=== PATIENT | female | born 1990 | race Caucasian/White ===

== ENCOUNTER 2018-01-20 14:41 | Emergency (ER) | payer OTHER ==
[2018-01-20 14:50] VITALS: BP 120/81; PULSE 85; TEMP 98; BMI 25.9
--- NOTE | 2018-01-20 14:52 | PDOC ---
Rapid Medical Evaluation Chief Complaint: Pain, Acute Medical Evaluation: Allergies Allergy/AdvReac Type Severity Reaction Status Date / Time No Known Allergies Allergy Verified 11/21/15 13:28 01/20/18 14:50 C/O LEFT SHOULDER PAIN TWISTED shoulder while carrying a heavy laundry bag 1 week ago PE: pateint alert ox3. able to extent arm. limited rom due to pain A: shoulder injury P: xray urine Discharge Disposition - Diagnosis Shoulder injury Qualifiers: Encounter type: initial encounter Laterality: left Qualified Code(s): S49.92XA - Unspecified injury of left shoulder and upper arm, initial encounter - Referrals - Patient Instructions - Post Discharge Activity
--- NOTE | 2018-01-20 15:04 | PDOC ---
History of Present Illness - General Chief Complaint: Pain, Acute Stated Complaint: RIGHT Shoulder PAIN Time Seen by Provider: 01/20/18 14:59 - History of Present Illness Initial Comments: 01/20/18 15:02 27-year-old female presents for evaluation of atraumatic left shoulder pain. She states she was lifting a suitcase last week and over the last week or shoulder increasingly he came or more painful. She points to the anterior aspect of the left shoulder as the area of her discomfort. She has no systemic symptoms Past History - Past Medical History Allergies/Adverse Reactions: Allergies Allergy/AdvReac Type Severity Reaction Status Date / Time No Known Allergies Allergy Verified 01/20/18 14:50 Home Medications: Ambulatory Orders NK [No Known Home Medication] 01/20/18 COPD: No Psychiatric Problems: Yes (depression/anxiety) - Suicide/Smoking/Psychosocial Hx Smoking History: Current every day smoker Have you smoked in the past 12 months: Yes Number of Cigarettes Smoked Daily: 4 Information on smoking cessation initiated: No Hx Alcohol Use: No Drug/Substance Use Hx: No Substance Use Type: None Review of Systems - Review of Systems Constitutional: No: Chills, Fever, Night Sweats Musculoskeletal: Yes: Joint Pain *Physical Exam - Vital Signs Last Vital Signs Temp Pulse Resp BP Pulse Ox 98 F 85 18 120/81 99 01/20/18 14:47 01/20/18 14:47 01/20/18 14:47 01/20/18 14:47 01/20/18 14:47 - Physical Exam Comments: Left shoulder range of motion is full and nonpainful. She has 5 out of 5 strength in supraspinous isolation internal and external rotation, negative impingement maneuvers. Positive speeds positive Benedict's test. No evidence of instability negative Spurling maneuver 5 out of 5 strength in bilateral upper extremities she's neurovascularly intact 01/20/18 15:03 *DC/Admit/Observation/Transfer Diagnosis at time of Disposition: Left shoulder strain Diagnosis at time of Disposition: (Ruled Out): Shoulder injury - Discharge Dispostion Disposition: HOME Condition at time of disposition: Stable Decision to Admit order: No - Referrals Referrals: Michael Bruno MD [Staff Physician] - - Patient Instructions Additional Instructions: Return to the emergency room should symptoms worsen or go unresolved. Please take Tylenol and Motrin as directed for pain. Follow-up with orthopedic surgery in 2-3 days for further evaluation and treatment options of your shoulder pain - Post Discharge Activity
== END 2018-01-20 15:29 | disposition home or self-care (01) ==
LOC: JERFT 14:41
DX: S46.812A Strain of other muscles, fascia and tendons at shoulder and upper arm level, left arm, initial encounter (principal); X50.0XXA Overexertion from strenuous movement or load, initial encounter; Y93.89 Activity, other specified; Y92.89 Other specified places as the place of occurrence of the external cause; Y99.8 Other external cause status
CPT/HCPCS: 99281-25

== ENCOUNTER 2018-03-11 16:13 | Emergency (ER) | payer OTHER ==
--- NOTE | 2018-03-11 16:27 | PDOC ---
Rapid Medical Evaluation Chief Complaint: Pain, Acute Time Seen by Provider: 03/11/18 16:25 Medical Evaluation: Allergies Allergy/AdvReac Type Severity Reaction Status Date / Time No Known Allergies Allergy Verified 01/20/18 14:50 03/11/18 16:25 I performed a brief in person evaluation. CC: Rash HPI: Pt is a 27 YO female with a hx left shoulder pain x 1 day. Denies injury or trauma. PE: Skin: Clear Lungs: Clear Heart: RRR MS: Moves all extremities without difficulty Neuro: Alert Psych: Appropriate affect Pt will go to [facility] for further evaluation. Discharge Disposition - Diagnosis Musculoskeletal pain - Referrals - Patient Instructions - Post Discharge Activity
[2018-03-11 16:30] VITALS: BP 137/84; PULSE 82; TEMP 98; BMI 26.4
--- NOTE | 2018-03-11 16:59 | PDOC ---
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 of L shoulder pain x 1 week no trauma Past History - Past Medical History Allergies/Adverse Reactions: Allergies Allergy/AdvReac Type Severity Reaction Status Date / Time No Known Allergies Allergy Verified 03/11/18 16:30 Home Medications: Ambulatory Orders NK [No Known Home Medication] 01/20/18 COPD: No Psychiatric Problems: Yes (depression/anxiety) - Suicide/Smoking/Psychosocial Hx Smoking History: Current every day smoker Have you smoked in the past 12 months: Yes Number of Cigarettes Smoked Daily: 6 Information on smoking cessation initiated: No Hx Alcohol Use: Yes (social) Drug/Substance Use Hx: No Substance Use Type: None Review of Systems - Review of Systems Musculoskeletal: Yes: Joint Pain *Physical Exam - Vital Signs Last Vital Signs Temp Pulse Resp BP Pulse Ox 98.0 F 82 18 137/84 100 03/11/18 16:28 03/11/18 16:28 03/11/18 16:28 03/11/18 16:28 03/11/18 16:28 - Physical Exam Comments: 03/11/18 16:55 Left shoulder skin color and temperature are normal range of motion is full and nonpainful. 5 out of 5 strength with supraspinatus isolation internal and external rotation. Mildly positive impingement maneuvers negative Spurling maneuver no gross sensorimotor deficits is neurovascularly intact. Moderate Sedation - Procedure Monitoring Vital Signs: Procedure Monitoring Vital Signs Temperature 98.0 F 03/11/18 16:28 Pulse Rate 82 03/11/18 16:28 Respiratory Rate 18 03/11/18 16:28 Blood Pressure 137/84 03/11/18 16:28 O2 Sat by Pulse Oximetry (%) 100 03/11/18 16:28 *DC/Admit/Observation/Transfer Diagnosis at time of Disposition: Musculoskeletal pain, Shoulder impingement - Discharge Dispostion Disposition: HOME Condition at time of disposition: Stable Decision to Admit order: No - Referrals Referrals: Janna Gomez MD [Primary Care Provider] - Michael Bruno MD [Staff Physician] - - Patient Instructions Printed Discharge Instructions: Shoulder Tendinopathy Additional Instructions: Return to the emergency room should symptoms worsen or go unresolved. Please follow-up with orthopedic surgery in 1-2 days for further evaluation and treatment options. He may take Tylenol and Motrin as directed for pain. - Post Discharge Activity
== END 2018-03-11 17:04 | disposition home or self-care (01) ==
LOC: JERFT 16:13
DX: M75.42 Impingement syndrome of left shoulder (principal); F41.8 Other specified anxiety disorders; F32.9 Major depressive disorder, single episode, unspecified; F17.210 Nicotine dependence, cigarettes, uncomplicated
CPT/HCPCS: 99281-25

== ENCOUNTER 2019-01-14 16:42 | Emergency (ER) | payer OTHER ==
--- NOTE | 2019-01-14 16:58 | PDOC ---
Rapid Medical Evaluation Time Seen by Provider: 01/14/19 16:56 Medical Evaluation: Allergies Allergy/AdvReac Type Severity Reaction Status Date / Time No Known Allergies Allergy Verified 03/11/18 16:30 01/14/19 16:56 I have performed a brief in-person evaluation of this patient. The patient presents with a chief complaint of: rt ear since saturday, no meds taken, no decreased hearing Pertinent physical exam findings: appears dry, no mastoid tenderness, vss I have ordered the following: none The patient will proceed to the ED for further evaluation. Discharge Disposition - Diagnosis Right ear pain - Referrals - Patient Instructions - Post Discharge Activity
[2019-01-14 16:59] VITALS: BP 109/77; PULSE 89; TEMP 97.7; BMI 25.4
[2019-01-14] MEDS ORDERED: PSEUDOEPHEDRINE HCL 30 MG TABLET PO ONE (17:36)
--- NOTE | 2019-01-14 17:37 | PDOC ---
History of Present Illness - General Chief Complaint: Ear Problem Stated Complaint: EAR/PAIN/HEAD/PAIN Time Seen by Provider: 01/14/19 16:56 - History of Present Illness Initial Comments: 01/14/19 17:36 29-year-old female without comorbidities presents for right ear pain x3 days no systemic symptoms Past History - Past Medical History Allergies/Adverse Reactions: Allergies Allergy/AdvReac Type Severity Reaction Status Date / Time No Known Allergies Allergy Verified 01/14/19 16:59 Home Medications: Ambulatory Orders NK [No Known Home Medication] 01/20/18 COPD: No Psychiatric Problems: Yes (depression/anxiety) - Psycho Social/Smoking Cessation Hx Smoking History: Never smoked Have you smoked in the past 12 months: Yes Number of Cigarettes Smoked Daily: 6 Information on smoking cessation initiated: No Hx Alcohol Use: No Drug/Substance Use Hx: No Substance Use Type: None Review of Systems - Review of Systems HEENTM: Yes: Ear Pain. No: Tinnitus *Physical Exam - Vital Signs Last Vital Signs Temp Pulse Resp BP Pulse Ox 97.7 F 89 18 109/77 98 01/14/19 16:57 01/14/19 16:57 01/14/19 16:57 01/14/19 16:57 01/14/19 16:57 - Physical Exam Comments: 01/14/19 17:36 GENERAL: The patient is awake, alert, and fully oriented, in no acute distress. HEAD: Normal with no signs of trauma. EYES: sclera anicteric, conjunctiva clear. ENT: Ears normal tympanic membranes are normal NECK: Normal range of motion LUNGS: Breath sounds equal, clear to auscultation bilaterally. No wheezes, and no crackles. HEART: S1 and S2 without murmur, rub or gallop. ABDOMEN: Soft, nontender, normoactive bowel sounds. No guarding, no rebound. No masses. EXTREMITIES: Normal range of motion, no edema. No clubbing or cyanosis. No cords, erythema, or tenderness. NEUROLOGICAL: Cranial nerves II through XII grossly intact. Normal speech, normal gait. PSYCH: Normal mood, normal affect. SKIN: Warm, Dry, normal turgor, no rashes or lesions noted. Medical Decision Making - Medical Decision Making 01/14/19 17:37 Patient states she feels congestion I will treat her with a Sudafed she has a an appointment with her primary care physician tomorrow Discharge - Discharge Information Problems reviewed: Yes Clinical Impression/Diagnosis: Right ear pain Condition: Stable Disposition: HOME - Admission No - Follow up/Referral Referrals: Keagan Dave MD [Primary Care Provider] - - Patient Discharge Instructions Additional Instructions: Return to the emergency room for worsening issues. Continue to follow-up with your primary care physician in the morning as directed. He was given a dose of Sudafed which should help with your congestion in your ear pain - Post Discharge Activity
[2019-01-14] MEDS ORDERED: PSEUDOEPHEDRINE HCL 60 MG TABLET ONE (17:41)
== END 2019-01-14 17:51 | disposition home or self-care (01) ==
LOC: JERFT 16:42
DX: H92.01 Otalgia, right ear (principal); F41.8 Other specified anxiety disorders; Z87.891 Personal history of nicotine dependence
CPT/HCPCS: 99281-25

== ENCOUNTER 2019-02-04 15:28 | Emergency (ER) | payer OTHER ==
[2019-02-04 15:38] VITALS: BP 109/78; PULSE 92; TEMP 98; BMI 26.4
--- NOTE | 2019-02-04 15:38 | PDOC ---
Rapid Medical Evaluation Time Seen by Provider: 02/04/19 15:36 Medical Evaluation: Allergies Allergy/AdvReac Type Severity Reaction Status Date / Time No Known Allergies Allergy Verified 01/14/19 16:59 02/04/19 15:37 Patient c/o: slipped on ice now with rt ankle swelling and pain Patient on brief exam: noted edema and tenderness to lat aspect malleolus Patient ordered for: ankle xray Patient to proceed to the ED Discharge Disposition - Diagnosis Right ankle injury, Right ankle sprain - Discharge Dispostion Disposition: HOME Condition at time of disposition: Stable - Referrals Referrals: Keagan Dave MD [Primary Care Provider] - Misha Lowery DO [Staff Physician] - - Patient Instructions Additional Instructions: You may weight-bear as tolerated with use of crutches in the Aircast Tylenol as directed for pain. Return to the emergency room for worsening symptoms. And without fail please follow-up with orthopedic surgery in 1 to 2 days for further evaluation and treatment options. - Post Discharge Activity
--- NOTE | 2019-02-04 16:05 | PDOC ---
History of Present Illness - General Chief Complaint: Injury Stated Complaint: FALL Time Seen by Provider: 02/04/19 15:36 - History of Present Illness Initial Comments: 02/04/19 16:03 28-year-old female presents for right ankle pain after describing an inversion injury which occurred today Past History - Past Medical History Allergies/Adverse Reactions: Allergies Allergy/AdvReac Type Severity Reaction Status Date / Time No Known Allergies Allergy Verified 02/04/19 15:39 Home Medications: Ambulatory Orders NK [No Known Home Medication] 01/20/18 COPD: No Psychiatric Problems: Yes (depression/anxiety) - Psycho Social/Smoking Cessation Hx Smoking History: Never smoked Have you smoked in the past 12 months: Yes Number of Cigarettes Smoked Daily: 6 Hx Alcohol Use: No Drug/Substance Use Hx: No Substance Use Type: None Review of Systems - Review of Systems Musculoskeletal: Yes: Joint Pain *Physical Exam - Vital Signs Last Vital Signs Temp Pulse Resp BP Pulse Ox 98 F 92 H 18 109/78 98 02/04/19 15:36 02/04/19 15:36 02/04/19 15:36 02/04/19 15:36 02/04/19 15:36 - Physical Exam 02/04/19 16:03 Ankle skin color and temperature normal range of motion is slightly limited. There is no tenderness about the proximal fibula or along its distal course. No tenderness about the medial lateral malleolus base of the fifth metatarsal or navicular. Mild tenderness over the ATFL without instability no gross sensorimotor deficits neurovascular intact. Medical Decision Making - Medical Decision Making 02/04/19 16:03 X-rays of the right ankle show no evidence of fracture trauma or destructive process. Ankle sprain weight-bear as tolerated with Aircast and crutches Tylenol and Motrin for pain Discharge - Discharge Information Problems reviewed: Yes Clinical Impression/Diagnosis: Right ankle injury, Right ankle sprain Condition: Stable Disposition: HOME - Admission No - Follow up/Referral Referrals: Keagan Dave MD [Primary Care Provider] - Misha Lowery DO [Staff Physician] - - Patient Discharge Instructions Additional Instructions: You may weight-bear as tolerated with use of crutches in the Aircast Tylenol as directed for pain. Return to the emergency room for worsening symptoms. And without fail please follow-up with orthopedic surgery in 1 to 2 days for further evaluation and treatment options. - Post Discharge Activity
== END 2019-02-04 16:10 | disposition home or self-care (01) ==
LOC: JERFT 15:28
PROC: 2W3QX1Z Immobilization of Right Lower Leg using Splint (ICD-10-PCS; principal; 2019-02-04)
DX: S93.401A Sprain of unspecified ligament of right ankle, initial encounter (principal); X58.XXXA Exposure to other specified factors, initial encounter; Y93.89 Activity, other specified; Y92.89 Other specified places as the place of occurrence of the external cause; F41.8 Other specified anxiety disorders
CPT/HCPCS: 73610-TC-RT-FY; 99281-25

== ENCOUNTER 2019-09-13 13:40 | Emergency (ER) | payer OTHER ==
[2019-09-13 13:44] VITALS: BP 125/78; PULSE 78; TEMP 98.3; BMI 24.5
--- NOTE | 2019-09-13 13:44 | PDOC ---
Rapid Medical Evaluation Chief Complaint: Ear Problem Time Seen by Provider: 09/13/19 13:41 Medical Evaluation: Allergies Allergy/AdvReac Type Severity Reaction Status Date / Time No Known Allergies Allergy Verified 02/04/19 15:39 09/13/19 13:41 I performed a brief in-person evaluation of this patient. Pt is a 29 y/o female with L earache for the last 4 days. She also is requesting a beta HCG but has not missed a period. She states her LMP was 08/20/19 and took a urine test which was negative. Pt admits to trying to get . Pertinent physical exam findings: no drainage noted from the L ear. I have ordered the following: none, beta HCG order left to the discretion of the treating provider. Patient to proceed to ED for further evaluation. Discharge Disposition - Diagnosis Left ear pain - Referrals - Patient Instructions - Post Discharge Activity
--- NOTE | 2019-09-13 14:07 | PDOC ---
History of Present Illness - General Chief Complaint: Ear Problem Stated Complaint: EAR PROBLEM Time Seen by Provider: 09/13/19 13:41 History Source: Patient - History of Present Illness Timing/Duration: reports: other Associated Symptoms: reports: earache. denies: cough, fever/chills, sore throat Past History - Medical History Allergies/Adverse Reactions: Allergies Allergy/AdvReac Type Severity Reaction Status Date / Time No Known Allergies Allergy Verified 09/13/19 13:44 Home Medications: Ambulatory Orders NK [No Known Home Medication] 01/20/18 COPD: No Psychiatric Problems: Yes (depression/anxiety) - Psycho-Social/Smoking History Smoking History: Current every day smoker Have you smoked in the past 12 months: Yes Number of Cigarettes Smoked Daily: 6 Information on smoking cessation initiated: No - Substance Abuse Hx (Audit-C & DAST Scrn) How often the patient has a drink containing alcohol: Never Score: In Men: 4 or > Positive; In Women: 3 or > Positive: 0 Screen Result (Pos requires Nsg. Audit-10AR): Negative Review of Systems - Review of Systems Constitutional: Yes: Fever HEENTM: Yes: Ear Pain. No: Ear Discharge Respiratory: No: Cough *Physical Exam - Vital Signs Last Vital Signs Temp Pulse Resp BP Pulse Ox 98.3 F 78 18 125/78 99 09/13/19 13:41 09/13/19 13:41 09/13/19 13:41 09/13/19 13:41 09/13/19 13:41 - Physical Exam General Appearance: Yes: Appropriately Dressed. No: Apparent Distress HEENT: positive: Normal ENT Inspection, Normal Voice, TMs Normal, Pharynx Normal. negative: Scleral Icterus (R), Scleral Icterus (L) Neck: positive: Supple Respiratory/Chest: negative: Respiratory Distress Integumentary: positive: Dry, Warm Neurologic: positive: Fully Oriented, Alert, Normal Mood/Affect Medical Decision Making - Medical Decision Making 09/13/19 14:04 29 yo F, no sig hx, here w/ L ear pain w/ "clogging" sensation x 2 days. No otorrhea. sore throat, f/c. See exam Ear pain of unclear etiology No findings on exam to explain sxs Dc w/ ENT f/u and OTC meds prn pain Discharge - Discharge Information Problems reviewed: Yes Clinical Impression/Diagnosis: Left ear pain Condition: Good Disposition: HOME - Follow up/Referral Referrals: Keagan Dave MD [Primary Care Provider] - Mohinder Garcia MD [Staff Physician] - - Patient Discharge Instructions Patient Printed Discharge Instructions: DI for Ear Pain-Adult Additional Instructions: The cause of your pain is unclear. Please follow up with DR Dias of ENT next week take motrin for pain as needed - Post Discharge Activity
== END 2019-09-13 14:12 | disposition home or self-care (01) ==
LOC: JERFT 13:40
DX: H92.02 Otalgia, left ear (principal)
CPT/HCPCS: 99283-25

== ENCOUNTER 2019-10-04 16:21 | Emergency (ER) | payer OTHER ==
[2019-10-04 16:31] VITALS: BP 124/88; PULSE 96; TEMP 98; BMI 24.9
--- NOTE | 2019-10-04 16:37 | PDOC ---
History of Present Illness - General Chief Complaint: Sore Throat Stated Complaint: SORE THROAT Time Seen by Provider: 10/04/19 16:24 History Source: Patient Exam Limitations: No Limitations - History of Present Illness Initial Comments: 10/04/19 16:46 HISTORY OF PRESENT ILLNESS: 29yo F with sore throat since awaking today. Denies fevers, chills, voice changes, difficulty swallowing. Patient reports performing oral sex on new male partner. Patient is concerned for oral GC. No recent travel or sick contacts. PAST MEDICAL HISTORY: Denies past medical history SURGICAL HISTORY: Denies ALLERGIES: No known drug allergies REVIEW OF SYSTEMS General/Constitutional: Denies fever or chills. Denies weakness, weight change. HEENT:see HPI Cardiovascular: Denies chest pain or shortness of breath. Respiratory: Denies cough, wheezing, or hemoptysis. Gastrointestinal: Denies nausea, vomiting, diarrhea or constipation. Denies rectal bleeding. Genitourinary: Denies dysuria, frequency, or change in urination. Musculoskeletal: Denies joint or muscle swelling or pain. Denies neck or back pain. Skin and breasts: Denies rash or easy bruising. Neurologic: Denies headache, vertigo, loss of consciousness, or loss of sensation. Psychiatric: Denies depression or anxiety. Endocrine: Denies increased thirst. Denies abnormal weight change. Hematologic/Lymphatic: Denies anemia, easy bleeding, or history of blood clots. Allergic/Immunologic: Denies hives or skin allergy. Denies latex allergy. PHYSICAL EXAM General Appearance: Well-appearing, appropriately dressed. No apparent distr ess, no intoxication. HEENT: EOMI, PERRLA, normal ENT inspection, normal voice. No conjunctival pallor. No photophobia, scleral icterus. 3+ tonsillar swelling present. B/L exudate present. Neck: Supple. Trachea midline. No tenderness, rigidity, carotid bruit, stridor, lymphadenopathy, or thyromegaly. Past History - Medical History Allergies/Adverse Reactions: Allergies Allergy/AdvReac Type Severity Reaction Status Date / Time No Known Allergies Allergy Verified 10/04/19 16:30 Home Medications: Ambulatory Orders Amoxicillin - [Amoxicillin 500mg Capsule -] 500 mg PO BID #20 capsule 10/04/19 COPD: No Psychiatric Problems: Yes (depression/anxiety) - Psycho-Social/Smoking History Smoking History: Current every day smoker Have you smoked in the past 12 months: Yes Number of Cigarettes Smoked Daily: 6 Medical Decision Making - Medical Decision Making 10/04/19 16:43 A/P: 29yoF with sore thraot x today B/L tonsillar swelling present with exudate b/l +tender anterior cervical lymphadenopathy throat cx Pharyngeal GC Patient chooses bicillin for presumed strep. D/C with PMD f/u Discharge - Discharge Information Problems reviewed: Yes Clinical Impression/Diagnosis: Pharyngitis Qualifiers: Pharyngitis/tonsillitis etiology: unspecified etiology Qualified Code(s): J02.9 - Acute pharyngitis, unspecified Condition: Fair Disposition: HOME - Admission No - Additional Discharge Information Prescriptions: Amoxicillin - [Amoxicillin 500mg Capsule -] 500 mg PO BID #20 capsule - Follow up/Referral Referrals: Keagan Dave MD [Primary Care Provider] - - Patient Discharge Instructions Additional Instructions: Rest, drink lots of fluids: Teas, water, soups Eat cold things: Ice cream, ice pops, ice chips Saltwater gargles Steamy showers/seem to face break up mucus Avoid contact with others until fevers and pain resolved Lots of handwashing and good hygiene, this is contagious You have been treated with Bicillin LA 1.2 million units injection which is a one-time treatment for strep pharyngitis. You will not need to take any further antibiotics. Tylenol or Motrin for fever and pain Followup with private physician in one to 2 days as needed if not improving Return to emergency department for worsened symptoms, fevers, dehydration - Post Discharge Activity
[2019-10-04] MEDS ORDERED: PENICILLIN G BENZATHINE 1,200,000 UNIT/2 ML PFS IM ONE ×2 (16:43→17:14)
== END 2019-10-04 17:26 | disposition home or self-care (01) ==
LOC: JERFT 16:21
DX: J02.9 Acute pharyngitis, unspecified (principal)
CPT/HCPCS: 36415; 87070; 87077; 87880; 99284-25

== ENCOUNTER 2020-08-19 12:10 | Emergency (ER) | payer OTHER ==
[2020-08-19 12:53] VITALS: BP 115/82; PULSE 77; TEMP 98.3; BMI 24.5
[2020-08-19] MEDS ORDERED: LIDOCAINE 5% TOPICAL PATCH TP ONE (14:11)
[2020-08-19] MEDS ORDERED: IBUPROFEN 600 MG TABLET (FP) PO ONE ×2 (14:11→14:17)
[2020-08-19] MEDS ORDERED: METHOCARBAMOL 500 MG TABLET PO ONE (14:12)
[2020-08-19] MEDS ORDERED: LIDOCAINE 5% TOPICAL PATCH ONE (14:16)
[2020-08-19] MEDS ORDERED: METHOCARBAMOL 500 MG TABLET ONE (14:17)
== END 2020-08-19 14:23 | disposition home or self-care (01) ==
LOC: JERFT 12:10 → JER 12:10 → JERFT 14:23
DX: M25.512 Pain in left shoulder (principal)
CPT/HCPCS: 99283-25

== ENCOUNTER 2020-09-02 07:22 | Emergency (ER) | payer OTHER ==
[2020-09-02 07:35] VITALS: BP 100/66; PULSE 85; BMI 24.4
[2020-09-02 09:15] LABS: URINE APPEARANCE Turbid; URINE BILIRUBIN 1+ (NEGATIVE); URINE COLOR Amber; URINE GLUCOSE (UA) Negative (NEGATIVE); URINE KETONE Trace (NEGATIVE); URINE LEUK ESTERASE 2+ (NEGATIVE); URINE NITRITE Negative (NEGATIVE); URINE PROTEIN 2+ (NEGATIVE)
[2020-09-02 09:21] LABS: URINE RBC 19379.8 /uL (0-23.9)
[2020-09-02 09:22] LABS: EPI CELLS 12.4 /uL (0-25.1); HCG,QUALITATIVE URINE Negative; HYALINE CASTS 18.47 /uL (0-3.1); URINE BACTERIA 105.3 /uL (0-1359); URINE WBC 6171.7 /uL (0-25.8)
== END 2020-09-02 09:35 | disposition home or self-care (01) ==
LOC: JER 07:22 → JERFT 07:22
DX: R30.0 Dysuria (principal)
CPT/HCPCS: 81003; 84703; 87086; 87186; 99283-25

== ENCOUNTER 2020-09-04 15:00 | Emergency (ER) | payer OTHER ==
[2020-09-04 15:14] VITALS: BP 112/78; PULSE 77; TEMP 98.1; BMI 24.4
== END 2020-09-04 18:31 | disposition home or self-care (01) ==
LOC: JER 15:00
DX: R07.0 Pain in throat (principal)
CPT/HCPCS: 87880; 99283-25; C9803; U0003; U0005

== ENCOUNTER 2020-10-10 09:01 | Emergency (ER) | payer OTHER ==
[2020-10-10 09:21] VITALS: BP 110/72; PULSE 95; TEMP 98.1; BMI 24.7
[2020-10-10 11:08] LABS: EPI CELLS 6 /uL (0-25.1); HYALINE CASTS 1 /uL (0-3.1); URINE APPEARANCE CLOUDY; URINE BACTERIA 103 /uL (0-1359); URINE BILIRUBIN NEGATIVE (NEGATIVE); URINE COLOR YELLOW; URINE GLUCOSE (UA) NEGATIVE (NEGATIVE); URINE KETONE TRACE (NEGATIVE); URINE LEUK ESTERASE 2+ (NEGATIVE); URINE NITRITE NEGATIVE (NEGATIVE); URINE PROTEIN 1+ (NEGATIVE); URINE RBC 62.8 /uL (0-23.9); URINE UROBILINOGEN 0.2 mg/dL (0.2-1.0); URINE WBC 1242 /uL (0-25.8)
[2020-10-10 11:09] LABS: HCG,QUALITATIVE URINE Negative
[2020-10-10 11:35] LABS: YEAST NON SEEN (NEGATIVE)
== END 2020-10-10 11:26 | disposition home or self-care (01) ==
LOC: JER 09:01
DX: N39.0 Urinary tract infection, site not specified (principal)
CPT/HCPCS: 36415; 81003; 84703; 87086; 87491; 87591; 99283-25

== ENCOUNTER 2020-11-21 12:28 | Emergency (ER) | payer OTHER ==
[2020-11-21 12:56] VITALS: BP 110/68; PULSE 56; TEMP 98.1; BMI 22.1
[2020-11-21 13:34] LABS: HCG,QUALITATIVE URINE Negative
[2020-11-21 13:36] LABS: EPI CELLS 9 /uL (0-25.1); HYALINE CASTS 1 /uL (0-3.1); URINE APPEARANCE CLOUDY; URINE BACTERIA 110 /uL (0-1359); URINE BILIRUBIN NEGATIVE (NEGATIVE); URINE COLOR YELLOW; URINE GLUCOSE (UA) NEGATIVE (NEGATIVE); URINE KETONE TRACE (NEGATIVE); URINE LEUK ESTERASE 3+ (NEGATIVE); URINE NITRITE NEGATIVE (NEGATIVE); URINE PROTEIN NEGATIVE (NEGATIVE); URINE RBC 679 /uL (0-23.9); URINE WBC 1695 /uL (0-25.8)
== END 2020-11-21 14:17 | disposition home or self-care (01) ==
LOC: JERFT 12:28
DX: N39.0 Urinary tract infection, site not specified (principal)
CPT/HCPCS: 81003; 84703; 87086; 99283-25

== ENCOUNTER 2020-11-29 08:18 | Emergency (ER) | payer OTHER ==
[2020-11-29 08:27] VITALS: BP 121/82; PULSE 89; TEMP 98.1; BMI 22.4
== END 2020-11-29 09:24 | disposition home or self-care (01) ==
LOC: JER 08:18
DX: N76.0 Acute vaginitis (principal)
CPT/HCPCS: 99283-25; C9803; U0003; U0005

== ENCOUNTER 2021-03-05 10:56 | Emergency (ER) | payer OTHER ==
[2021-03-05 11:00] VITALS: BP 119/78; PULSE 92; TEMP 97; BMI 24.7
[2021-03-05 12:35] LABS: EPI CELLS 11 /uL (0-25.1); HYALINE CASTS 2 /uL (0-3.1); URINE APPEARANCE TURBID; URINE BACTERIA 60 /uL (0-1359); URINE BILIRUBIN NEGATIVE (NEGATIVE); URINE COLOR YELLOW; URINE GLUCOSE (UA) NEGATIVE (NEGATIVE); URINE KETONE NEGATIVE (NEGATIVE); URINE LEUK ESTERASE 3+ (NEGATIVE); URINE NITRITE NEGATIVE (NEGATIVE); URINE PROTEIN 1+ (NEGATIVE); URINE RBC 10016 /uL (0-23.9); URINE WBC 3378 /uL (0-25.8)
[2021-03-05 12:42] LABS: HCG,QUALITATIVE URINE Negative
== END 2021-03-05 15:17 | disposition home or self-care (01) ==
LOC: JERFT 10:56
DX: N30.01 Acute cystitis with hematuria (principal)
CPT/HCPCS: 81003; 84703; 87086; 99283-25

== ENCOUNTER 2021-08-10 10:35 | Emergency (ER) | payer BC, OTHER ==
[2021-08-10 10:41] VITALS: BP 104/74; PULSE 100; TEMP 98.6; BMI 20.3
[2021-08-10] MEDS ORDERED: DEXAMETHASONE LIQUID 0.5 MG/5 ML PO ONE (11:44)
[2021-08-10] MEDS ORDERED: DEXAMETHASONE SOD PHOSPHATE 10 MG/1 ML VIAL ONE (12:19)
[2021-08-10 12:31] LABS: THROAT:GRP A STREP DETECTED (NOTDETECTED)
[2021-08-10 13:01] LABS: SARS COV-2 MOLECULAR IN-HOUSE NEGATIVE (NEGATIVE)
== END 2021-08-10 13:30 | disposition home or self-care (01) ==
LOC: JER 10:35
DX: J02.0 Streptococcal pharyngitis (principal)
CPT/HCPCS: 87651; 99283-25; C9803-CS; U0003; U0005

== ENCOUNTER 2021-09-17 10:04 | Emergency (ER) | payer OTHER ==
[2021-09-17 10:15] VITALS: BP 111/74; PULSE 87; TEMP 98.4; BMI 23.0
[2021-09-17 11:00] LABS: EPI CELLS 0 /uL (0-25.1); HCG,QUALITATIVE URINE Negative; HYALINE CASTS 0 /uL (0-3.1); URINE APPEARANCE CLOUDY; URINE BACTERIA 4 /uL (0-1359); URINE BILIRUBIN NEGATIVE (NEGATIVE); URINE COLOR ORANGE; URINE GLUCOSE (UA) NEGATIVE (NEGATIVE); URINE KETONE TRACE (NEGATIVE); URINE LEUK ESTERASE 1+ (NEGATIVE); URINE NITRITE NEGATIVE (NEGATIVE); URINE PROTEIN 3+ (NEGATIVE); URINE RBC 574 /uL (0-23.9); URINE WBC 6 /uL (0-25.8)
[2021-09-17 11:45] LABS: BASO % 0.5 % (0-2.0); EOS % 1.3 % (0-4.5); HEMATOCRIT 44.1 % (32.4-45.2); HEMOGLOBIN 14.3 GM/dL (10.7-15.3); LYMPH % 24.9 % (8-40); MCH 30.6 pg (25.7-33.7); MCHC 32.5 g/dl (32.0-36.0); MEAN CELL VOLUME 94.3 fl (80-96); MEAN PLT VOLUME 10.4 fl (7.5-11.1); MONO % 5.5 % (3.8-10.2); NEUT % 67.8 % (42.8-82.8); PLATELET COUNT 220 10^3/uL (134-434); RBC 4.67 M/mm3 (3.60-5.2); RDW 13.9 % (11.6-15.6); WHITE BLOOD COUNT 13.1 K/mm3 (4.0-10.0)
[2021-09-17 12:06] LABS: ALBUMIN 3.9 g/dl (3.4-5.0); CALCIUM 9.5 mg/dL (8.5-10.1)
[2021-09-17 12:09] LABS: CREATININE 0.5 mg/dL (0.55-1.3)
[2021-09-17 12:11] LABS: BILIRUBIN,TOTAL 0.3 mg/dL (0.2-1)
== END 2021-09-17 12:41 | disposition home or self-care (01) ==
LOC: JER 10:04
DX: R30.0 Dysuria (principal); R80.9 Proteinuria, unspecified
CPT/HCPCS: 36415; 80053; 81003; 82550; 84703; 85025; 87086; 99284-25

== ENCOUNTER 2022-03-27 06:56 | Emergency (ER) | payer OTHER ==
[2022-03-27 07:04] VITALS: BMI 20.3
[2022-03-27 08:26] LABS: EPI CELLS 4 /uL (0-25.1); HCG,QUALITATIVE URINE Positive; HYALINE CASTS 6 /uL (0-3.1); URINE APPEARANCE CLOUDY; URINE BACTERIA 213 /uL (0-1359); URINE BILIRUBIN NEGATIVE (NEGATIVE); URINE COLOR YELLOW; URINE GLUCOSE (UA) NEGATIVE (NEGATIVE); URINE KETONE NEGATIVE (NEGATIVE); URINE LEUK ESTERASE 2+ (NEGATIVE); URINE NITRITE NEGATIVE (NEGATIVE); URINE PROTEIN NEGATIVE (NEGATIVE); URINE RBC 111 /uL (0-23.9); URINE UROBILINOGEN 0.2 mg/dL (0.2-1.0); URINE WBC 902 /uL (0-25.8)
[2022-03-27] MEDS ORDERED: CEPHALEXIN MONOHYDRATE 500 MG CAPSULE (UD) PO ONE (09:53)
[2022-03-27] MEDS ORDERED: CEPHALEXIN MONOHYDRATE 500 MG CAPSULE (UD) ONE (10:43)
[2022-03-27 10:49] VITALS: BP 120/62; PULSE 74; RESP 20; TEMP 97.8
== END 2022-03-27 10:49 | disposition home or self-care (01) ==
LOC: JER 06:56 → JERFT 06:56
DX: N39.0 Urinary tract infection, site not specified (principal)
CPT/HCPCS: 36415; 81003; 84702; 84703; 87086; 87186; 99283-25

== ENCOUNTER 2022-07-20 16:51 | Emergency (ER) | payer OTHER ==
[2022-07-20 16:57] VITALS: BP 103/72; PULSE 84; RESP 17; TEMP 98.4; BMI 21.2
== END 2022-07-20 19:17 | disposition home or self-care (01) ==
LOC: JERFT 16:51
DX: R21 Rash and other nonspecific skin eruption (principal); M54.2 Cervicalgia; R07.9 Chest pain, unspecified; M54.9 Dorsalgia, unspecified
CPT/HCPCS: 72050-TC-FY; 84703; 99284-25

== ENCOUNTER 2022-07-24 17:38 | Emergency (ER) | payer OTHER ==
[2022-07-24 17:58] VITALS: PULSE 75; RESP 20; TEMP 98.2; BMI 382.9
[2022-07-24 18:39] VITALS: BP 97/62
== END 2022-07-24 18:43 | disposition home or self-care (01) ==
LOC: JERFT 17:38
DX: M25.512 Pain in left shoulder (principal); M54.2 Cervicalgia
CPT/HCPCS: 99283-25

== ENCOUNTER 2022-10-12 10:55 | Emergency (ER) | payer OTHER ==
[2022-10-12 11:09] VITALS: BP 102/57; PULSE 53; RESP 16; TEMP 97.8; BMI 21.2
[2022-10-12 12:45] LABS: URINE APPEARANCE CLEAR; URINE BILIRUBIN NEGATIVE (NEGATIVE); URINE COLOR YELLOW; URINE GLUCOSE (UA) NEGATIVE (NEGATIVE); URINE KETONE NEGATIVE (NEGATIVE); URINE LEUK ESTERASE NEGATIVE (NEGATIVE); URINE NITRITE NEGATIVE (NEGATIVE); URINE PROTEIN NEGATIVE (NEGATIVE); URINE UROBILINOGEN 0.2 mg/dL (0.2-1.0)
[2022-10-12 12:48] LABS: HCG,QUALITATIVE URINE Negative
== END 2022-10-12 13:37 | disposition home or self-care (01) ==
LOC: JERFT 10:55
DX: Z32.02 Encounter for pregnancy test, result negative (principal); R11.0 Nausea; R35.0 Frequency of micturition; K59.00 Constipation, unspecified; R10.32 Left lower quadrant pain
CPT/HCPCS: 36415; 81003; 84702; 84703; 87086; 99283-25

== ENCOUNTER 2023-01-08 14:37 | Emergency (ER) | payer OTHER ==
[2023-01-08 14:46] VITALS: BP 102/65; PULSE 89; RESP 18; TEMP 98.1; BMI 21.2
== END 2023-01-08 15:55 | disposition home or self-care (01) ==
LOC: JERFT 14:37
DX: R05.9 Cough, unspecified (principal); R51.9 Headache, unspecified; R09.3 Abnormal sputum; H92.02 Otalgia, left ear; J01.90 Acute sinusitis, unspecified; B96.89 Other specified bacterial agents as the cause of diseases classified elsewhere
CPT/HCPCS: 99283-25

== ENCOUNTER 2023-03-08 14:41 | Emergency (ER) | payer OTHER ==
[2023-03-08 15:20] VITALS: BP 102/75; PULSE 96; RESP 17; TEMP 98.2; BMI 21.2
== END 2023-03-08 16:36 | disposition home or self-care (01) ==
LOC: JERFT 14:41
DX: L72.0 Epidermal cyst (principal)
CPT/HCPCS: 99282-25

== ENCOUNTER 2023-03-16 14:13 | Emergency (ER) | payer OTHER ==
[2023-03-16 14:19] VITALS: BP 123/69; PULSE 71; RESP 18; TEMP 98.1; BMI 20.3
[2023-03-16] MEDS ORDERED: ACETAMINOPHEN 500 MG TABLET (FP) PO ONE (15:28)
== END 2023-03-16 16:03 | disposition home or self-care (01) ==
LOC: JERFT 14:13
DX: L02.415 Cutaneous abscess of right lower limb (principal); L66.2 Folliculitis decalvans
CPT/HCPCS: 99282-25

== ENCOUNTER 2023-06-13 12:22 | Emergency (ER) | payer OTHER ==
[2023-06-13 12:26] VITALS: RESP 18; TEMP 98.4; BMI 22.1
[2023-06-13 13:01] LABS: URINE APPEARANCE Error; URINE BILIRUBIN NEGATIVE (NEGATIVE); URINE COLOR YELLOW; URINE GLUCOSE (UA) NEGATIVE (NEGATIVE); URINE KETONE TRACE (NEGATIVE); URINE LEUK ESTERASE NEGATIVE (NEGATIVE); URINE NITRITE NEGATIVE (NEGATIVE); URINE PROTEIN NEGATIVE (NEGATIVE)
[2023-06-13 13:03] LABS: HCG,QUALITATIVE URINE Negative
[2023-06-13 13:13] LABS: THROAT:GRP A STREP NOT DETECTED (NOTDETECTED)
[2023-06-13] MEDS ORDERED: KETOROLAC TROMETHAMINE 15 MG/ML VIAL ONE (13:32)
[2023-06-13] MEDS: KETOROLAC TROMETHAMINE 15 MG/ML VIAL IM ONE (13:38)
[2023-06-13 13:51] VITALS: BP 97/65; PULSE 85
== END 2023-06-13 13:59 | disposition home or self-care (01) ==
LOC: JERFT 12:22
PROC: 3E0233Z Introduction of Anti-inflammatory into Muscle, Percutaneous Approach (ICD-10-PCS; principal; 2023-06-13)
DX: N92.6 Irregular menstruation, unspecified (principal); B34.9 Viral infection, unspecified; Z20.822 Contact with and (suspected) exposure to COVID-19
CPT/HCPCS: 0241U-QW; 81003; 84703; 87086; 87651; 99284-25

== ENCOUNTER 2023-06-14 13:10 | Emergency (ER) | payer OTHER ==
[2023-06-14 13:24] VITALS: BP 112/73; PULSE 100; RESP 16; TEMP 98.8; BMI 22.1
[2023-06-14] MEDS ORDERED: IBUPROFEN 400 MG TABLET (FP) PO ONE (14:36)
[2023-06-14] MEDS ORDERED: AMOX TR/POT CLAV 875MG/125MG TABLETS (FP) ONE (14:36)
[2023-06-14] MEDS: IBUPROFEN 400 MG TABLET (FP) PO ONE (14:40)
[2023-06-14] MEDS: AMOX TR/POT CLAV 875MG/125MG TABLETS (FP) PO ONE (14:40)
== END 2023-06-14 14:55 | disposition home or self-care (01) ==
LOC: JERFT 13:10
DX: H66.91 Otitis media, unspecified, right ear (principal); J06.9 Acute upper respiratory infection, unspecified; H92.01 Otalgia, right ear; R09.81 Nasal congestion
CPT/HCPCS: 99283-25

== ENCOUNTER 2023-06-25 10:14 | Emergency (ER) | payer OTHER ==
[2023-06-25 10:22] VITALS: BP 105/67; PULSE 79; RESP 20; TEMP 97.6; BMI 21.2
[2023-06-25] MEDS ORDERED: DEXAMETHASONE SOD PHOSPHATE 10 MG/1 ML VIAL ONE (12:24)
[2023-06-25] MEDS ORDERED: IBUPROFEN 600 MG TABLET (FP) PO ONE (12:24)
[2023-06-25] MEDS: DEXAMETHASONE SOD PHOSPHATE 10 MG/1 ML VIAL PO ONE (12:26)
[2023-06-25] MEDS: IBUPROFEN 600 MG TABLET (FP) PO ONE (12:26)
[2023-06-25 12:39] LABS: EPI CELLS 11 /uL (0-25.1); HYALINE CASTS 4 /uL (0-3.1); URINE APPEARANCE CLOUDY; URINE BACTERIA 105 /uL (0-1359); URINE BILIRUBIN NEGATIVE (NEGATIVE); URINE COLOR YELLOW; URINE GLUCOSE (UA) NEGATIVE (NEGATIVE); URINE KETONE NEGATIVE (NEGATIVE); URINE LEUK ESTERASE 1+ (NEGATIVE); URINE NITRITE NEGATIVE (NEGATIVE); URINE PROTEIN NEGATIVE (NEGATIVE); URINE UROBILINOGEN 0.2 mg/dL (0.2-1.0); URINE WBC 304 /uL (0-25.8)
[2023-06-25 12:40] LABS: HCG,QUALITATIVE URINE Negative
[2023-06-25 12:42] LABS: URINE RBC 90.1 /uL (0-23.9)
[2023-06-25 13:02] LABS: THROAT:GRP A STREP NOT DETECTED (NOTDETECTED)
[2023-06-25] MEDS: CEPHALEXIN MONOHYDRATE 500 MG CAPSULE (UD) PO ONE (13:13)
[2023-06-25] MEDS ORDERED: CEPHALEXIN MONOHYDRATE 500 MG CAPSULE (UD) ONE (13:14)
== END 2023-06-25 13:17 | disposition home or self-care (01) ==
LOC: JERFT 10:14
DX: N30.01 Acute cystitis with hematuria (principal); R05.9 Cough, unspecified; R07.89 Other chest pain; Z20.822 Contact with and (suspected) exposure to COVID-19
CPT/HCPCS: 0241U-QW; 81003; 84703; 87086; 87186; 87651; 99283-25; J1100

== ENCOUNTER 2023-11-21 09:15 | Emergency (ER) | payer OTHER ==
[2023-11-21 09:50] VITALS: BP 108/65; PULSE 87; RESP 17; TEMP 98.2; BMI 28.3
== END 2023-11-21 10:46 | disposition home or self-care (01) ==
LOC: JERFT 09:15
DX: J68.9 Unspecified respiratory condition due to chemicals, gases, fumes and vapors (principal)
CPT/HCPCS: 71046-TC-FY; 93005; 93010; 99284-25

== ENCOUNTER 2023-11-28 14:09 | Emergency (ER) | payer OTHER ==
[2023-11-28 15:44] VITALS: BP 102/64; PULSE 78; RESP 18; TEMP 98.6; BMI 22.1
[2023-11-28 17:02] LABS: HIV INTERPRETATION NEGATIVE (NEGATIVE)
== END 2023-11-28 15:30 | disposition home or self-care (01) ==
LOC: JERFT 14:09
DX: S50.862A Insect bite (nonvenomous) of left forearm, initial encounter (principal); W57.XXXA Bitten or stung by nonvenomous insect and other nonvenomous arthropods, initial encounter
CPT/HCPCS: 36415; 86803; 87389; 99283-25

== ENCOUNTER 2023-12-21 15:27 | Emergency (ER) | payer OTHER ==
[2023-12-21 15:35] VITALS: BP 113/80; PULSE 94; RESP 20; TEMP 98.8; BMI 22.1
[2023-12-21 16:56] LABS: EPI CELLS 9 /uL (0-25.1); HYALINE CASTS 0 /uL (0-3.1); PH,URINE 5.5 (5.0-8.0); URINE APPEARANCE CLEAR; URINE BACTERIA 15 /uL (0-1359); URINE BILIRUBIN NEGATIVE (NEGATIVE); URINE COLOR YELLOW; URINE GLUCOSE (UA) NEGATIVE (NEGATIVE); URINE KETONE NEGATIVE (NEGATIVE); URINE LEUK ESTERASE NEGATIVE (NEGATIVE); URINE NITRITE NEGATIVE (NEGATIVE); URINE PROTEIN NEGATIVE (NEGATIVE); URINE RBC 6 /uL (0-23.9); URINE UROBILINOGEN 0.2 mg/dL (0.2-1.0); URINE WBC 8 /uL (0-25.8)
[2023-12-21 18:15] LABS: HIV INTERPRETATION NEGATIVE (NEGATIVE)
== END 2023-12-21 19:59 | disposition home or self-care (01) ==
LOC: JER 15:27
DX: R10.2 Pelvic and perineal pain (principal); R10.30 Lower abdominal pain, unspecified
CPT/HCPCS: 36415; 76830-TC; 81003; 84703; 86803; 87086; 87389; 87491; 87591; 87661; 99284-25

== ENCOUNTER 2023-12-30 10:06 | Emergency (ER) | payer OTHER ==
[2023-12-30 10:22] VITALS: BP 107/69; PULSE 84; RESP 16; TEMP 97.5; BMI 21.2
[2023-12-30] MEDS ORDERED: KETOROLAC TROMETHAMINE 30 MG/1 ML VIAL ONE (11:12)
[2023-12-30] MEDS ORDERED: METHOCARBAMOL 500 MG TABLET ONE (11:12)
[2023-12-30] MEDS: METHOCARBAMOL 500 MG TABLET PO ONE (11:25)
[2023-12-30] MEDS: KETOROLAC TROMETHAMINE 30 MG/1 ML VIAL IM ONE (11:25)
[2023-12-30 14:19] LABS: HIV INTERPRETATION NEGATIVE (NEGATIVE)
== END 2023-12-30 12:11 | disposition home or self-care (01) ==
LOC: JERFT 10:06
PROC: 3E0133Z Introduction of Anti-inflammatory into Subcutaneous Tissue, Percutaneous Approach (ICD-10-PCS; principal; 2023-12-30)
DX: M54.10 Radiculopathy, site unspecified (principal); M54.2 Cervicalgia
CPT/HCPCS: 36415; 86803; 87389; 99284-25

== ENCOUNTER 2024-01-04 14:42 | Emergency (ER) | payer OTHER ==
[2024-01-04 14:49] VITALS: BP 118/80; PULSE 60; RESP 17; TEMP 97.8; BMI 22.1
[2024-01-04] MEDS ORDERED: DEXAMETHASONE SOD PHOSPHATE 10 MG/1 ML VIAL ONE (16:23)
[2024-01-04] MEDS ORDERED: CYCLOBENZAPRINE HCL 10 MG TABLET (FP) ONE (16:23)
[2024-01-04] MEDS: DEXAMETHASONE SOD PHOSPHATE 10 MG/1 ML VIAL IM ONE (16:38)
[2024-01-04] MEDS: CYCLOBENZAPRINE HCL 10 MG TABLET (FP) PO ONE (16:39)
[2024-01-04 19:25] LABS: HIV INTERPRETATION NEGATIVE (NEGATIVE)
== END 2024-01-04 19:25 | disposition home or self-care (01) ==
LOC: JER 14:42
PROC: 3E023GC Introduction of Other Therapeutic Substance into Muscle, Percutaneous Approach (ICD-10-PCS; principal; 2024-01-04)
DX: S43.101A Unspecified dislocation of right acromioclavicular joint, initial encounter (principal); M25.512 Pain in left shoulder; M54.12 Radiculopathy, cervical region; X58.XXXA Exposure to other specified factors, initial encounter
CPT/HCPCS: 36415; 72050-TC-FY; 72125-TC; 73030-TC-LT-FY; 73030-TC-RT-FY; 84703; 86803; 87389; 99285-25; J1100

== ENCOUNTER 2024-03-26 08:06 | Emergency (ER) | payer OTHER ==
[2024-03-26] MEDS: ACETAMINOPHEN 1000 MG/100 ML BAG IVPB ONE (09:23)
[2024-03-26 09:27] VITALS: BMI 22.1
[2024-03-26 09:51] LABS: BASO % 0.9 % (0-2.0); EOS % 1.7 % (0-4.5); HEMATOCRIT 39.4 % (32.4-45.2); HEMOGLOBIN 13.2 GM/dL (10.7-15.3); LYMPH % 21.4 % (8-40); MCH 31.3 pg (25.7-33.7); MCHC 33.5 g/dl (32.0-36.0); MEAN CELL VOLUME 93.4 fl (80-96); MEAN PLT VOLUME 9.9 fl (7.5-11.1); MONO % 6.1 % (3.8-10.2); NEUT % 69.9 % (42.8-82.8); PLATELET COUNT 201 10^3/uL (134-434); RBC 4.22 M/mm3 (3.60-5.2); RDW 14.1 % (11.6-15.6); WHITE BLOOD COUNT 12.2 K/mm3 (4.0-10.0)
[2024-03-26] MEDS ORDERED: ACETAMINOPHEN INJECTION 100 ML ONE (10:03)
[2024-03-26 10:10] LABS: ALBUMIN 3.6 g/dl (3.4-5.0); BLOOD UREA NITROGEN 17.4 mg/dL (7-18); CALCIUM 9.4 mg/dL (8.5-10.1)
[2024-03-26 10:14] LABS: CREATININE 0.5 mg/dL (0.55-1.3)
[2024-03-26 10:15] LABS: BILIRUBIN,TOTAL 0.2 mg/dL (0.2-1); TOT PROT 6.4 g/dl (6.4-8.2)
[2024-03-26 10:59] VITALS: BP 105/62; PULSE 78; RESP 20; TEMP 97.2
[2024-03-26 11:10] LABS: INR 1.21 (0.83-1.09); PROTHROMBIN TIME (PATIENT) 13.8 SEC (9.7-13.0)
[2024-03-26 11:12] LABS: ACTIVATED PTT 31.2 SECONDS (25.2-36.5)
[2024-03-26] MEDS ORDERED: KETOROLAC TROMETHAMINE 15 MG/ML VIAL ONE (11:36)
[2024-03-26] MEDS: KETOROLAC TROMETHAMINE 15 MG/ML VIAL IVPUSH ONE (11:44)
== END 2024-03-26 12:46 | disposition home or self-care (01) ==
LOC: JER 08:06
PROC: 3E033NZ Introduction of Analgesics, Hypnotics, Sedatives into Peripheral Vein, Percutaneous Approach (ICD-10-PCS; principal; 2024-03-26)
PROC: 3E0333Z Introduction of Anti-inflammatory into Peripheral Vein, Percutaneous Approach (ICD-10-PCS; 2024-03-26)
DX: R07.9 Chest pain, unspecified (principal); Z20.822 Contact with and (suspected) exposure to COVID-19
CPT/HCPCS: 0241U-QW; 36415; 71046-TC-FY; 80053; 84484; 84703; 85025; 85610; 85730; 93005; 93010; 99285-25; J0131